=== PATIENT | female | born 1985 | race Caucasian/White ===

== ENCOUNTER 2016-09-11 14:43 | Emergency (ER) | payer OTHER ==
[~2016-09-11] VITALS: Ht 167.6 cm; Wt 77.3 kg
[2016-09-11 15:02] VITALS: BP 136/87; PULSE 58; RESP 14
--- NOTE | 2016-09-11 16:47 | ED.REPORT ---
HPI-Extremity Problem Lower Date of Service September 11, 2016 ED Provider: Nieda Yao History of Present Illness: pain at bunion site on left foot for 2 months. worse the last few days. primary care is at [facility]. Have not seen podiatry yet. work at [employer]. taking ibuprofen 1000 mg once a day. Nursing Notes Stated Complaint: RIGHT FOOT PAIN Chief Complaint: Extremity Trauma Nursing Notes Reviewed: Yes Allergies: Coded Allergies: No Known Allergies (Unverified , 09/11/16) General Time Seen by MD: 16:45 Chief Complaint Toe injury left 1 Hx Obtained From: Patient Symptom Duration: More than a week... (2 months) Past Medical History Past Medical History Denies: Asthma Past Surgical History denies Smoking History Current Every Day Smoker (1/4 pack a day for 15 years) Social History clean for 27 months Alcohol Use: Denies alcohol use Drug Use: Denies drug use Occupation has own apartment 09/11/2016 Review of Systems Basic Review of Systems Eyes: Vision NL, No discharge : No dysuria, No frequency Psychiatric: Normal thought content Physical Exam Initial Vital Signs Vital Signs (First) Date Time Temp Pulse Resp B/P Pulse Ox O2 Delivery O2 Flow Rate FiO2 09/11/16 15:02 36.3 58 14 136/87 Room Air Initial VS: Reviewed, Vital signs normal General/Constitutional: Well-developed, Well-nourished Head / Eyes: Atraumatic, Normocephalic, PERRL ENT: Mucous membranes moist, Conjunctiva normal, No scleral icterus Neck: Supple, Non-tender, Full range of motion Respiratory: Breath sounds normal, Clear to auscultation, No respiratory distress Cardiovascular: Regular rate & rhythm, Heart sounds normal, Intact distal pulses Abdomen / GI: Soft, Non-tender, No guarding, No rebound, No distention Back: No CVA tenderness Lymphatic: No lymphadenopathy Upper Extremities: Vascular intact, Neuro intact, No swelling, No tenderness Skin: Warm, Dry, No cyanosis Neurologic: Alert, Oriented, Nonfocal Psychiatric: Mood/affect normal, Behavior normal, Normal thought content Lower Extremity / Pelvis / MS: Atraumatic, Inspection NL, Full range of motion , No swelling pain at bunion site and along lateral edge of foot. No sign of infection. General/Constitutional: Awake, Alert, No acute distress, Well appearing, Well developed, Well hydrated, Well nourished, Cooperative, Not toxic appearing Respiratory / Chest: Atraumatic, Breath sounds NL, Breath sounds = bilat, No respiratory distress Cardiovascular: Heart rate NL, Regular rhythm, Heart sounds NL, No gallop Interpretation & Diagnostics X-Ray Interpretation Xray Interpretation: PROCEDURE: X-RAY LEFT FOOT COMPLETE, MINIMUM THREE VIEWS ([id number]) INDICATIONS: foot pain TECHNIQUE: 3 views of the foot were acquired. COMPARISON: None. FINDINGS: Bones: No fractures or dislocations. No suspicious bony lesions. Soft tissues: No tibiotalar joint effusion. Achilles tendon appears normal. IMPRESSION: No acute fracture. No osseous lesion. If clinical suspicion and/or symptoms persist, further assessment with repeat plainfilms, or advanced imaging (e.g., CT, MRI, or bone scan) may be helpful for further assessment. Dictated by: Ramses Smallwood M.D. on 09/11/2016 at 17:12 Approved by: Ramses Smallwood M.D. on 09/11/2016 at 17:13 Re-Eval/Medical Decision Med Decision/Clinical Course 31 year old female presents for evualtion of foot pain for 2 month duration. X-ray is negative. Patient reporting some decrease in pain after using the cast shoe. . No sign of any fracture. Discharge & Departure Impression: Primary Impression: Left foot pain Disposition: Home Additional Instructions: The x-ray is negative for any bony damage. Wearing the cast shoe does seem to decrease the pain some what. Wear the cast while up and walking. Use ibuprofen 800 mg up to 3 times a day as needed for discomfort. Use ice to the site when you can 15 minutes on and 15 minutes off. Please call Dr. Flores in podiatry for follow up. Congratulations on your accomplishment!!!!! Very few can achieve what you have! I am so proud of you!! Referrals: Amara Gaspar MD (PCP) Waqar Flores DPM EDSupervising Provider for APC: Lucio Easton MD copies to: Waqar Flores DPM, Sue ARNP September 11, 2016 16:47
--- NOTE | 2016-09-11 17:14 | DRSVH ---
PROCEDURE: X-RAY LEFT FOOT COMPLETE, MINIMUM THREE VIEWS ([id number]) INDICATIONS: foot pain TECHNIQUE: 3 views of the foot were acquired. COMPARISON: None. FINDINGS: Bones: No fractures or dislocations. No suspicious bony lesions. Soft tissues: No tibiotalar joint effusion. Achilles tendon appears normal. IMPRESSION: No acute fracture. No osseous lesion. If clinical suspicion and/or symptoms persist, fur ther assessment with repeat plainfilms, or advanced imaging (e.g., CT, MRI, or bone scan) may be help ful for further assessment. Dictated by: Ramses Smallwood M.D. on 09/11/2016 at 17:12 Approved by: Ramses Smallwood M.D. on 09/11/2016 at 17:13
== END 2016-09-11 17:52 | disposition home or self-care (01) ==
LOC: SED 14:43
DX: M79.672 Pain in left foot (principal); F17.200 Nicotine dependence, unspecified, uncomplicated
CPT/HCPCS: 73630; 96372; 99284; J1885